=== PATIENT | female | born 1990 | race Caucasian/White ===

== ENCOUNTER 2019-06-24 14:08 | Observation (INO) | payer SELFPAY ==
[2019-06-24] VITALS (8 sets, daily range): BP systolic 100–122; BP diastolic 55–65; PULSE 75–97; TEMP 99.2
[~2019-06-24] VITALS: Ht 154.9 cm; Wt 69.8 kg
[2019-06-24 15:38] LABS: BASO % 0.2 % (0.0-2.0); EOS % 0.1 % (0-4.0); GRAN # 14.4 (1.4-6.5); GRAN % 84.6 % (42.2-75.2); HEMATOCRIT 39.9 % (37.0-47.0); HEMOGLOBIN 14.3 g/dl (12.5-16.0); LYMPH # 1.9 (1.2-3.4); LYMPH % 11.2 % (20.0-51.0); MEAN CELL VOLUME 82 fl (80.0-100.0); MEAN CORPUSCULAR HEMOGLOBIN 29 pg (27.0-31.0); MEAN CORPUSCULAR HGB CONC 36 g/dl (33.0-37.0); MEAN PLATELET VOLUME 11.5 fl (7.4-10.4); MONO # 0.6 (0.1-0.6); MONO % 3.3 % (1.7-9.3); PLATELET COUNT 278 K/mm3 (130-400); RED BLOOD COUNT 4.89 M/mm3 (4.10-5.30); REDCELL DISTRIBUTION WIDTH-CV 12.5 % (11.5-14.5)
[2019-06-24 15:46] LABS: ALBUMIN 4.8 gm/dL (3.5-5.0); BILIRUBIN,TOTAL 0.6 mg/dL (0.0-1.0); CALCIUM 9.8 mg/dL (8.4-10.2); CREATININE, serum 0.64 (0.52-1.25); POTASSIUM 3.8 mmol/L (3.4-5.0); TOTAL PROTEIN 8.2 gm/dL (6.4-8.2)
[2019-06-24 15:48] LABS: COLLECTION METHOD CLEAN CATCH
[2019-06-24 16:04] LABS: MUCOUS Present /lpf; PH 6 (5-8); URINE APPEARANCE Hazy; URINE BACTERIA None Seen /hpf; URINE BILIRUBIN Negative (NEGATIVE); URINE BLOOD Negative (NEGATIVE); URINE COLOR Yellow; URINE GLUCOSE Negative (NEGATIVE); URINE KETONE 2+ (NEGATIVE); URINE LEUKOCYTE ESTERASE Negative (NEGATIVE); URINE NITRATE Negative (NEGATIVE); URINE PROTEIN(semi-quant) 1+ (NEGATIVE); URINE UROBILINOGEN Negative (NEGATIVE)
--- NOTE | 2019-06-24 22:23 | NUR ---
PATIENT TO ROOM 328 AT 2100. ALERT AND ORIENTED BUT DROWSY. X3 LAP SITES WITH BANDAIDS CDI. FAMILY AND FRIEND IN ROOM ASSISTED WITH ADMISSION ASSESSMENT. DENIES PAIN AT THIS TIME. TOLERATED PO WATER AND APPLESAUCE/JELLO. SLIGHT FEVER NOTED 99.2, HOWEVER THIS IS LESS THAN IN PACU. 2 L O2 VIA NC. LR INFUSING INTO R AC AT 75ML/HR. NO FURTHER NEEDS AT THIS TIME. WILL CONTINUE TO MONITOR.
[2019-06-25 00:46] VITALS: BP 109/47; PULSE 93
[2019-06-25 04:54] VITALS: BP 115/51; PULSE 87; TEMP 98.6
[2019-06-25 07:48] VITALS: BP 102/47; PULSE 79; TEMP 98.7
--- NOTE | 2019-06-25 08:00 | NUR ---
PATIENT IS DROWSY AND RESTING IN BED WITH HER BOYFRIEND PRESENT AT THE BEDSIDE. PATIENT AROUSES EASILY TO NAME. PATIENT IS A&OX4. VSS. ABDOMEN IS DISTENDED BUT SOFT UPON PALPATION. BOWEL SOUNDS ACTIVE ALL FOUR QUADRANTS. PATIENT TOLERATING DIET WITHOUT ANY COMPLAINTS OF N/V. ABDOMINAL LAP SITES X3 DRESSED WITH BANDAIDS AND ARE CD&I. SHALLOW BREATHING NOTED. POSITIVE PEDAL PULSES EQUAL BILATERALLY. IV FLUIDS INFUSING TO RIGHT AC IV VIA PUMP. CALL LIGHT WITHIN REACH. NO NEEDS AT THIS TIME.
[2019-06-25] MEDS ORDERED: NORCO 325 MG-51 TAB PO (09:31)
--- NOTE | 2019-06-25 10:00 | NUR ---
PATIENTS RIGHT AC INT DISCONTINUED PER PENDING DISCHARGE. TIP INTACT. PATIENT TOLERATED WELL.
--- NOTE | 2019-06-25 11:25 | NUR ---
DISCHARGE INSTRUCTIONS REVIEWED WITH PATIENT AND BOYFRIEND WITH TRANSLATION HELP FROM PATIENTS FRIEND HORTENCIA. QUESTIONS SOUGHT AND ANSWERED. PATIENT PERSONAL BELONGINGS GATHERED. PATIENT AMBULATED WITH SURGICAL STAFF TO PERSONAL VEHICLE. PATIENT DISCHARGED.
== END 2019-06-25 11:25 | disposition home or self-care (01) ==
LOC: COL.ER 14:08 → EDBD 14:09 → EDSEX 14:09 → COL.ER 14:09 → JCC 16:30
PROVIDERS: Emergency Medicine; ADMIT Surgery
DX: K35.80 Unspecified acute appendicitis (principal)
CPT/HCPCS: G0378; J0330; J0696; J1100; J1170; J1885; J2250; J2270; J2405; J2550; J2704; J3010; J7030; J7120; Q9967